=== PATIENT | male | born 2000 | race Caucasian/White ===

== ENCOUNTER 2020-11-18 13:48 | Emergency (ER) | payer BC ==
[~2020-11-18] VITALS: Ht 175.3 cm; Wt 76.7 kg
--- NOTE | 2020-11-18 14:17 | NUR ---
PT BIB [facility] VIA POV DUE TO RLQ PAIN RADIATING TO RIGHT TESTICLE X 2 HOURS. PT RESTING IN GURNEY, MONITORING IN PLACE, GIRLFRIEND AT BEDSIDE, VITOR AT THIS TIME, PT STATES PAIN IS ABOUT 7/10, WCTM.
[2020-11-18] MEDS ORDERED: MORPHINE SULFATE 4 MG/ML, 1ML ONE (14:21)
[2020-11-18] MEDS ORDERED: ONDANSETRON 2MG/ML, 2ML ONE (14:21)
[2020-11-18] MEDS ORDERED: SODIUM CHLORIDE FLUSH 10ML SYR IVF ONE (14:30)
[2020-11-18] MEDS ORDERED: MORPHINE SULFATE 4 MG/ML, 1ML IVPush PRN (14:30)
[2020-11-18] MEDS ORDERED: ONDANSETRON 2MG/ML, 2ML IVPush ONE (14:30)
--- NOTE | 2020-11-18 14:39 | NUR ---
PT TO CT VIA [facility]. Addendum: 11/18/20 at 1458 by MARIANNA PT TO US
--- NOTE | 2020-11-18 15:18 | NUR ---
PT BACK TO ROOM FROM [facility] VIA [facility]
--- NOTE | 2020-11-18 15:29 | NUR ---
PT STATES HE IS UNABLE TO URINATE AT THIS TIME.
[2020-11-18 16:29] LABS: MICROSCOPIC NOT IND
[2020-11-18 16:39] VITALS: BP 122/65
== END 2020-11-18 18:34 | disposition home or self-care (01) ==
LOC: ED 15:50
DX: N50.811 Right testicular pain (principal); N20.1 Calculus of ureter; R10.31 Right lower quadrant pain
CPT/HCPCS: 74176; 76870; 81003; 96374; 96375; 99285; J2270; J2405